=== PATIENT | male | born 1950 | race Caucasian/White ===

== ENCOUNTER 2016-11-21 18:16 | Emergency (ER) | payer OTHER ==
[~2016-11-21] VITALS: Ht 175.3 cm; Wt 158.8 kg
[~2016-11-21 18:16] MED LIST: ATEN50TA; BENZ100C97; FLUO20CA19; FURO80TA; GLIP-116; LISI40TA; METO-5; POTA8CAP6; TERA5CAP42
[2016-11-21 18:18] VITALS: BP 155/69
== END 2016-11-21 21:29 | disposition home or self-care (01) ==
LOC: ER 18:16 → EDBD 18:16 → ER 21:29
DX: S66.911A Strain of unspecified muscle, fascia and tendon at wrist and hand level, right hand, initial encounter (principal); M79.1 Myalgia; E11.9 Type 2 diabetes mellitus without complications; I11.0 Hypertensive heart disease with heart failure; I50.9 Heart failure, unspecified; E78.5 Hyperlipidemia, unspecified; V43.52XA Car driver injured in collision with other type car in traffic accident, initial encounter; Y93.89 Activity, other specified; Y92.89 Other specified places as the place of occurrence of the external cause; Y99.8 Other external cause status
CPT/HCPCS: 29125; 73130

== ENCOUNTER 2021-11-17 14:46 | Emergency (ER) | payer OTHER ==
[~2021-11-17 14:46] MED LIST changes: +FURO1TAB32; -FURO80TA; -GLIP-116; +GLIP10TA9; -LISI40TA; +LISI40TA11; -METO-5; +METO1TAB77
== END 2021-11-17 19:30 | disposition left against medical advice (07) ==
LOC: ER 14:46
DX: R06.02 Shortness of breath (principal); Z53.21 Procedure and treatment not carried out due to patient leaving prior to being seen by health care provider